=== PATIENT | female | born 1950 | race Caucasian/White ===

== ENCOUNTER 2021-08-16 10:48 | Emergency (ER) | payer BC ==
[2021-08-16] MEDS: Diphtheria,Pertussis(Acell),Tetanus Vaccine 0.5 ML SDV IM ONE (11:45)
[2021-08-16] MEDS: Lidocaine 1% 5 ML VIAL INJECT ONE (11:45)
== END 2021-08-16 11:59 | disposition home or self-care (01) ==
LOC: LB.ED 10:48
DX: S81.811A Laceration without foreign body, right lower leg, initial encounter (principal); Z87.891 Personal history of nicotine dependence; Z23 Encounter for immunization; W26.8XXA Contact with other sharp object(s), not elsewhere classified, initial encounter
CPT/HCPCS: 12002; 90471; 90715; 99282; 99282-25

== ENCOUNTER 2023-02-25 18:02 | Emergency (ER) | payer MEDICARE ==
[2023-02-25] MEDS ORDERED: Morphine 2 MG/ML SYRINGE IM ONE (18:36)
[2023-02-25] MEDS ORDERED: Morphine 4 MG/ML VIAL ONE (18:39)
[2023-02-25] MEDS ORDERED: Morphine 4 MG/ML VIAL IVPUSH ONE (18:45)
[2023-02-25] MEDS ORDERED: Acetaminophen/HYDROcodone 325-5 MG Tab ONE (19:00)
== END 2023-02-25 19:15 | disposition home or self-care (01) ==
LOC: LB.ED 18:02
DX: S52.532A Colles' fracture of left radius, initial encounter for closed fracture (principal); Z79.899 Other long term (current) drug therapy; W01.0XXA Fall on same level from slipping, tripping and stumbling without subsequent striking against object, initial encounter
CPT/HCPCS: 73110-LT; 96374; 99283; 99283-25; A9270-GY; J2270